=== PATIENT | female | born 1995 | race Caucasian/White ===

== ENCOUNTER 2023-04-17 14:29 | Emergency (ER) | payer SELFPAY ==
[2023-04-17 14:35] VITALS: BP 170/108; PULSE 93; RESP 22; TEMP 36.6; O2SAT 96; BMI 51.5
--- NOTE | 2023-04-17 15:04 | ED.URI1 ---
HPI - URI/Sore Throat General Chief Complaint: Upper Respiratory Infection Stated Complaint: ABD PAIN/CHEST CONGESTION Time Seen by Provider: 04/17/23 14:38 Source: patient Limitations: no limitations History of Present Illness HPI Narrative: [age] year old female presents for cough of three days' duration. She's been coughing up green phlegm and is worried about being contagious and having pneumonia. No fever that has been documented but her estimates that it might have been 100 degrees at home. no vomiting or diarrhea. She's not worried about having Covid, she states it feels different. Related Data Previous Rx's Medication Instructions Recorded benzonatate 100 mg capsule 100 mg PO TID PRN cough #20 caps 04/17/23 doxycycline hyclate 100 mg capsule 100 mg PO BID 10 days #20 caps 04/17/23 Allergies Allergy/AdvReac Type Severity Reaction Status Date / Time Penicillins Allergy Unknown Verified 04/17/23 14:35 Review of Systems ROS Narrative A ten point review of systems is negative except as noted above. Exam Narrative Exam Narrative: Nurses note and vital signs reviewed and patient is not hypoxic. General: The patient appears well and in no apparent distress. Patient is resting comfortably on cart. Skin: Warm, dry, no pallor noted. There is no rash noted. Head: Normocephalic, atraumatic Eye: Normal conjunctiva, no drainage Ears, Nose, Mouth, and Throat: oral mucosa is moist. Nares patent. Cardiovascular: Regular Rate and Rhythm Respiratory: Patient is in no distress, no accessory muscle use, lungs are clear to auscultation, no wheezing, rales or rhonchi Back: non-tender GI: nontender Musculoskeletal: The patient has no evidence of calf tenderness, no pitting edema, symmetrical pulses noted bilaterally Neurological: A&O, normal speech Psychiatric: Cooperative Constitutional Vital Signs, click to edit/add: Last Vital Signs Temp 98 F 04/17/23 14:35 Pulse 93 H 04/17/23 14:35 Resp 22 04/17/23 14:35 BP 170/108 H 04/17/23 14:35 Pulse Ox 96 04/17/23 14:35 O2 Del Method Room Air 04/17/23 14:58 Course Vital Signs Vital signs: Vital Signs Temperature 98 F 04/17/23 14:35 Pulse Rate 93 H 04/17/23 14:35 Respiratory Rate 22 04/17/23 14:35 Blood Pressure 170/108 H 04/17/23 14:35 Pulse Oximetry 96 04/17/23 14:35 Oxygen Delivery Method Room Air 04/17/23 14:35 Temperature 98 F 04/17/23 14:35 Pulse Rate 93 H 04/17/23 14:35 Respiratory Rate 22 04/17/23 14:35 Blood Pressure 170/108 H 04/17/23 14:35 Pulse Oximetry 96 04/17/23 14:35 Oxygen Delivery Method Room Air 04/17/23 14:58 MDM - URI/Sore Throat MDM Narrative Medical decision making narrative: she was offered a Covid test but doesn't want it. I have low clinical suspicion for pneumonia and she is prescribed doxycycline and Tessalon. Treatment diagnosis and follow-up were discussed with the patient. Differential Diagnosis Differential diagnosis: Likely upper respiratory infection, viral infection, bronchitis and other (Covid, pneumonia) Discharge Plan Discharge Chief Complaint: Upper Respiratory Infection Clinical Impression: Upper respiratory infection Patient Disposition: Home, Self-Care Time of Disposition Decision: 14:58 Condition: Good Mode of Transportation: Private Vehicle Prescriptions / Home Meds: New benzonatate 100 mg capsule 100 mg PO TID PRN (Reason: cough) Qty: 20 0RF doxycycline hyclate 100 mg capsule 100 mg PO BID 10 Days Qty: 20 0RF Instructions: Upper Respiratory Infection (ED) Stand Alone Forms: Portal Instructions Referrals: Physician,Non-Staff, MD [Primary Care Provider] - 1 week
[2023-04-17 15:14] LABS: SARS-CoV-2 Ag NEGATIVE (NEGATIVE)
[2023-04-17 15:23] VITALS: BP 142/90
[2023-04-18 15:53] LABS: SARS-CoV-2 NAA NOT DETECTED (NOT DETECTE)
== END 2023-04-17 15:24 | disposition home or self-care (01) ==
PROVIDERS: Emergency Provider Emergency Medicine
DX: J06.9 Acute upper respiratory infection, unspecified (principal); Z20.822 Contact with and (suspected) exposure to COVID-19
CPT/HCPCS: 87635; 87811; 99283; U0003

== ENCOUNTER 2024-12-01 09:10 | Outpatient (OUT) | payer BC, SELFPAY ==
[2024-12-01 10:25] LABS: Basophils Percent Auto 0.3 % (0.2-2.0); Eosinophils Absolute Auto 0.2 10^3/uL (0.0-0.7); Eosinophils Percent Auto 1.1 % (0.9-7.0); Hematocrit 34.7 % (36.0-48.0); Immature Granulocytes Abs Auto 0.05 10^3/uL (0.00-0.03); Immature Granulocytes Pct Auto 0.4 % (0.0-0.5); Lymphocytes Absolute Auto 3.1 10^3/uL (1.2-3.8); Lymphocytes Percent Auto 21.5 % (20.5-60.0); Mean Corpuscular Hemoglobin 20.2 pg (26.7-34.0); Mean Platelet Volume 9.6 fL (9.5-13.5); Monocytes Absolute Auto 0.7 10^3/uL (0.3-0.8); Neutrophils Absolute Auto 10.2 10^3/uL (1.4-6.5); Neutrophils Percent Auto 71.7 % (43.0-75.0); Platelet Count 412 10^3/uL (150-450); Red Blood Count 4.96 10^6/uL (4.20-5.40); Red Cell Distribution Width 16.1 % (11.0-15.0); White Blood Count 14.3 10^3/uL (4.0-11.0)
[2024-12-01 10:53] LABS: Estimated Average Glucose 134 mg/dL; Glycohemoglobin A1C 6.3 % (4.5-6.2)
[2024-12-01 11:29] LABS: Mean Corpuscular HGB Conc 28.8 g/dL (29.9-35.2)
[2024-12-01 12:07] LABS: Alanine Aminotransferase 36 U/L (14-59); Albumin Globulin Ratio 0.9; Albumin Level 3.7 g/dL (3.4-5.0); Alkaline Phosphatase 96 U/L (46-116); Anion Gap 13.3; Aspartate Amino Transferase 19 U/L (15-37); BUN Creatinine Ratio 16.2; Bilirubin Total 0.3 mg/dL (0.2-1.0); Carbon Dioxide 26.2 mmol/L (21.0-32.0); Chloride 104 mmol/L (98-107); Chol HDL Ratio 2.1; Cholesterol 112 mg/dL (<=200); Estimated GFR (African America >60 (>=60 mL/min/1.73m^2); Estimated GFR (Non-African Ame >60 (>=60 mL/min/1.73m^2); Free T3 2.47 pg/mL (2.18-3.98); Globulin 4.2 g/dL; Glucose 96 mg/dL (74-106); HDL Cholesterol 53 mg/dL (40-60); LDL Cholesterol Calculated 49.2 mg/dL; Potassium 3.5 mmol/L (3.5-5.1); Sodium 140 mmol/L (136-145); Thyroid Stimulating Hormone 2.936 uIU/mL (0.358-3.740); Total Protein 7.9 g/dL (6.4-8.2); Triglycerides 49 mg/dL (<=150); VLDL CHOLESTEROL 9.8 mg/dL
[2024-12-02 12:12] LABS: Insulin 23.8 uIU/mL (2.6-24.9)
== END 2024-12-01 09:11 | disposition home or self-care (01) ==
LOC: LAB 09:12
PROVIDERS: PCP Nurse Practitioner Family; Visit Provider Nurse Practitioner Family
DX: Z00.00 Encounter for general adult medical examination without abnormal findings (principal)
CPT/HCPCS: 36415; 80053; 80061; 82306; 83036; 83525; 83540; 84436; 84443; 84481; 85025

== ENCOUNTER 2024-12-23 17:59 | Emergency (ER) | payer BC, SELFPAY ==
--- OUTSIDE RECORDS SUMMARY | 2024-12-01 04:30 | XMS_ITS ---
Author Organization [facility] in [place] Address [address] [place] [address] Care Team Providers Care Recruiting Manager Name Role Phone Ayleen Colin Primary Care Provider Allergies Allergen (clinical drug ingredient) Drug/Non Drug Allergy documented on EMR Reaction Allergy Type Onset Date Status Penicillin rash Drug Allergy Active REASON FOR VISIT Presents to office with sister as a TARGET TRIMMER to establish care., Works at [employer] in [place]. Has a very demanding job., Was diagnosed with Depression at age 13. Medications Medication SIG (Take, Route, Fr equency, Duration) Notes Start Date End Date Status Lisinopril 10 MG 1 tablet Orally Once a day for 30 days 12/01/2024 Active Social History Tobacco Use: Social History Observation Description Date Details (start date - stop date) Never Smoker NA - NA Tobacco Control (Standard) Question Answer Notes Tobacco use: Nonsmoker AUDIT-C (Standard) Question Answer Notes Did you have a drink containing alcohol in the p ast year? No Points 0 Interpretation Negative Problems Problem Type SNOMED Code ICD Code Onset Dates Problem Status W/U Status Risk Notes Problem Hypertension (30488474) HTN (hypertension) (I10) Active confirmed Problem Morbid obesity (035275330) Class 3 obesity (E66.01) Active confirmed Problem Anxiety (95374006) Anxiety (F41.9) Active confirmed Problem Depressed (68210721) Depressed (F32.9) Active confirmed Vital Signs Blood pressure systolic 138 mm Hg 12/02/19 25 Blood pressure diastolic 100 mm Hg 025 Height 64 in 12/01/2024 Weight 341.6 lbs 12/01/2024 BMI 58.63 kg/m2 12/01/2024 Encounters Encounter Location Date Provider Diagnosis [facility] [address] [place] [address] 12/01/2024 Ayleen Colin HTN (hypertension) I10 ; Wellness examination Z00.00 and Class 3 obesity E66.01 Assessments Encounter Date Diagnosis (ICD Code) Assessment Notes Treatment Notes Treatment Clinical Notes Section Notes 12/01/2024 HTN (hypertension) (ICD-10 - I10) fu 2 weeks for BP check on lisinopril in past 12/01/2024 Wellness examination (ICD-10 - Z00.00) ROS done exam done discussed wt encouraged pap 12/01/2024 Class 3 obesity (ICD-10 - E66.01) going to gym Plan Of Treatment Medication Medication Name Sig Start Date Stop Date Notes Lisinopril 10 MG 1 tablet Orally Once a day for 30 days Treatment Notes Assessment Notes HTN (hypertension) fu 2 weeks for BP check on lisinopril in past Wellness examination ROS done exam done discussed wt encouraged pap Class 3 obesity going to gym Pending Test Test Name Order Date HEMOGLOBIN A1C (GLYCO) 12/01/2024 IRON, TOTAL 12/01/2024 LIPID PANEL (CHOL/TRIG/HDL/LDL) 12/02/19 25 VITAMIN D, 25 LEVEL (TOTAL) 12/01/2024 Insulin Level 12/01/2024 THYROID PANEL (T4/TSH/FREE T3) CMP (COMP MET [place]) w/eGFR CKD-EPI 2024 CBC WITH DIFF 12/01/2024 Next Appt Details Follow Up: 2 Weeks,prn, Reas on: Progress Notes * Perico HAREOB: [birth year] (29 yo F)Acc No.[id number]:12/01/2024 New Patient Patient: Debi OSORIO Provider: Asha Colin (TTC), BELLHOP CAPTAIN :1995 A ge:29 Y S ex:Female Date:12/01/2024 Address:[address] [place], [place] [id number] Check In:08:17 AM ESTCheck O ut:08:44 AM EST Subjective: * Chief Complaints: * 1 . Presents to office with sister as a TARGET TRIMMER to establish care.. 2. Works at [employer] in [place]. Has a very demanding job.. 3. Was diagnosed with Depression at age 13.. * HPI: G eneral: works at [employer] 48 to 80 hrs a week out of a marriage was coercive control situation ended 2019 hx depression, counseling and meds in past doesnt think its an issue mother was abusive mentally, addicted to opiates Mom at 44 from an infection around heart started going to gym. D epression Screening: PHQ-9 L ittle interest or pleasure in doing things?Several days F eeling down, depressed, or hopeless M ore than half the days T rouble falling or staying asleep, or sleeping too much N early every day F eeling tired or having little energy S everal days P oor appetite or overeating M ore than half the days F eeling bad about yourself or that you are a failure, or have let yourself or your family down N early every day T rouble concentrating on things, such as reading the newspaper or watching television S everal days M oving or speaking so slowly that other people could have noticed; or the opposite, being so fidgety or restless that you have been moving around a lot more than usual M ore than half the days T houghts that you would be better off or of hurting yourself in some way S everal days (Consider Suicide Assessment Risk) T otal Score 1 6 I nterpretation M oderately Severe Depression * ROS: G eneral/Constitutional: Fever d enies. H eadache d enies. W eight loss?denies. O phthalmologic: Discharge d enies. E ye Pain d enies. I tching and redness d enies. E NT: Nasal discharge d enies. N keyona congestion d enies.?Sore throat d enies. C ardiovascular: Chest tightness/ heavy pressure d enies. R apid heart rate d enies. S welling of extremities d enies. C hest pain d enies. ? R espiratory: Productive cough d enies. C hest pain d enies. C ough d enies. S hortness of breath d enies. W heezing d enies. ? G astrointestinal: Abdominal pain d enies. C onstipation d enies. D ecreased appetite d enies. D iarrhea d enies. N ausea d enies. V omiting?denies. G enitourinary: Urinary incontinence d enies. P ainful urination d enies. M usculoskeletal: Back pain d enies. N chelle pain d enies. M uscle aches d enies. S kin: Rash d enies. S kin lesion(s) d enies. ? * Active Problem List F41.9 Anxiety Modified On:12/01/2024 Status:confirmed F32.9 Depressed Modified On:12/01/2024 Status:confirmed I10 HTN (hypertension) Modified On:12/01/2024 Status:confirmed E66.01 Class 3 obesity Modified On:12/01/2024 Status:confirmed * Medical History: K idney stones, Anxiety, Depressed. * Surgical History: t onsillectomy . * Family History: F ather: alive, depression, kidney stones, diagnosed with Diabetes mellitus without mention of complication, type II or unspecified type, not stated as uncontrolled. M other: , from infection in heart, had substance abuse issues. 1 sister(s) . . * Social History: T obacco Use: T obacco Control (Standard) T obacco use: N onsmoker D rug/Alcohol: A REYNALDO-C (Standard) D id you have a drink containing alcohol in the past year? N o P oints 0 I nterpretation N egative * Medications: N one * Allergies: P enicillin: rash. Objective: * Vitals: W t:341.6lbs, Ht: 64 in, BP:138/100mm Hg, BMI:58.63Index, Ht-cm: 162.56 cm, Wt-k.95 kg. * Examination: G eneral Examinations: GENERAL APPEARANCE: a lert and oriented, in no acute distress, obese. EYES: c onjunctiva normal, sclera non-icteric. LUNGS: c lear to auscultation bilaterally. CARDIO: r egular rate and rhythm, S1, S2 normal. MUSCULOSKELETAL: G ait and station normal. SKIN: w arm and dry. Assessment: * Assessment: 1. H TN (hypertension) - I10 (Primary) 2 . W ellness examination - Z00.00? 3. C lass 3 obesity - E66.01 Plan: * Treatment: 2. W ellness examination L AB: HEMOGLOBIN A1C (GLYCO) L AB: IRON, TOTAL L AB: LIPID PANEL (CHOL/TRIG/HDL/LDL) L AB: VITAMIN D, 25 LEVEL (TOTAL) L AB: Insulin Level L AB: THYROID PANEL (T4/TSH/FREE T3) L AB: CMP (COMP MET [place]) w/eGFR CKD-EPI L AB: CBC WITH DIFF Notes: ROS done exam done discussed wt encouraged pap 3. C lass 3 obesity Notes: going to gym * Follow Up: 2 Weeks,prn * * Sign off status: Completed Visit Status: C KIRSTEN (Check Out) true * Provider: Asha Colin (TTC), BELLHOP CAPTAIN Date: 0 12/01/2024 Generated for Brie elaine/Bassam/eTransmitting on: 0 12/23/2024 06:03 PM EDT History and Physical Notes * HPI (History of Present Illness) Category Sub-Category Detail Notes Category Not es Depression Screening PHQ-9 Little inte rest or pleasure in doing things: Several days Feeling down, depressed, or hopeless: Mo re than half the days Trouble falling or staying asleep, or sl eeping too much: Nearly every day Feeling tired or having little energy: S everal days Poor appetite or overeating: More than h [facility] the days Feeling bad about yourself o r that you are a failure, or have let yourself or your family down: Nearly every day Trouble concentrating on thi ngs, such as reading the newspaper or watching television: Several days Moving or speaking so slowly that other people could have noticed; or the opposite, being so fidgety or restless that you have been moving around a lot more than usual: More than half the days Thoughts that you would be b linda off or of hurting yourself in some way: Several days (Consider Suicide Assessment Risk) Total Score: 16 Interpretation: Moderately Severe Depres valeria General works at [employer] 48 to 80 hrs a week out of a marriage was coercive control situation ended 2019 hx depression, counseling and meds in past doesnt think its an issue mother was abusive mentally, addicted to opiates Mom at 44 from an infection around heart started going to gym Examination Category Sub-Category Detail Notes Category Not es General Examinations GENERAL APPEARANCE: alert a nd oriented, in no acute distress, obese EYES: conjunctiva normal, sclera non-icteric EARS: NOSE: THROAT: CARDIO: regular rate and rhy thm, S1, S2 normal LUNGS: clear to auscultatio n bilaterally ABDOMEN: SKIN: warm and dry BACK: MUSCULOSKELETAL: Gait and station nor mal LYMPH NODES:
--- OUTSIDE RECORDS SUMMARY | 2024-12-06 04:30 | XMS_ITS ---
Author Organization The [facility] in [place] Address [address] [place] [address] Care Team Providers Care Tape Recording Machine Operator Name Role Phone Ayleen Colin Primary Care Provider Allergies Allergen (clinical drug ingredient) Drug/Non Drug Allergy documented on EMR Reaction Allergy Type Onset Date Status Penicillin rash Drug Allergy Active REASON FOR VISIT go over bloodwork Medications Medication SIG (Take, Route, Frequency, Duration) Notes Start Date End Date Status Vitamin D3 50 MCG (2000 UT) 1 capsule Orally Once a day for 30 day(s) 12/06/2024 Active Lisinopril 10 MG 1 tablet Orally Once a day for 30 days 12/01/2024 Active metFORMIN HCl 500 MG 1 tablet with a raulito l Orally BID for 30 days 12/06/2024 Active Ferrous Sulfate 325 (65 Fe) MG 1 tablet Orally Three times a Week for 30 day(s) 12/06/2024 Activ e Social History Tobacco Use: Social History Observation Description Date Details (start date - stop date) Never Smoker NA - NA Tobacco Control (Standard) Question Answer Notes Tobacco use: Nonsmoker Problems Problem Type SNOMED Code ICD Code Onset Dates Problem Status W/U Status Risk Notes Problem Vitamin D deficiency (42195651) Vitamin D deficiency (E55.9) Active confirmed Problem Leukocytosis (684420247) Elevated WBC count (D72.829) Active confirmed Problem Iron deficiency anemia (92612444) Iron deficiency anemia (D50.9) Active confirmed Vital Signs Blood pressure systolic 126 mm Hg 12/07/19 25 Blood pressure diastolic 92 mm Hg 025 Height 64 in 12/06/2024 Weight 339.4 lbs 12/06/2024 BMI 58.25 kg/m2 12/06/2024 Encounters Encounter Location Date Provider Diagnosis [address] [place] [address] 12/06/2024 Ayleen Colin Vitamin D deficiency E55.9 ; Pre-diabetes R73.03 ; Elevated WBC count D72.829 and Iron deficiency anemia D50.9 Assessments Encounter Date Diagnosis (ICD Code) Assessment Notes Treatment Notes Treatment Clinical Notes Section Notes 12/06/2024 Vitamin D deficiency (ICD-10 - E55.9) 12/06/2024 Pre-diabetes (ICD-10 - R73.03) work on diet, wt fu 3m 12/06/2024 Elevated WBC count (ICD-10 - D72.829) was little under weather recently 12/06/2024 Iron deficiency anemia (ICD-10 - D50.9) irregular periods, some last 3 weeks when has fu obgyn repeat labs 3m Plan Of Treatment Medication Medication Name Sig Start Date Stop Date Notes Vitamin D3 50 MCG (1999 UT) 1 capsule Or ally Once a day for 30 day(s) 12/06/2024 metFORMIN HCl 500 MG 1 tablet with a raulito l Orally BID for 30 days 12/06/2024 Ferrous Sulfate 325 (65 Fe) MG 1 tablet Orally Three times a Week for 30 day(s) 12/06/2024 Treatment Notes Assessment Notes Pre-diabetes work on diet, wt fu 3m Elevated WBC count was little under wea ther recently Iron deficiency anemia irregular periods, some last 3 weeks when has fu obgyn repeat labs 3m Pending Test Test Name Order Date CBC AUTO DIFF 12/06/2024 Next Appt Details Follow Up: prn, Reason: Progress Notes * Perico HAREOB: [birth year] (29 yo F)Acc No.[id number]:12/06/2024 Progress Note Patient: Janice PETTYDebi Provider: Asha Colin ([facility]), SOFT TILE SETTER :1995 A ge:29 Y S ex:Female Date:12/06/2024 Address:[address] [place], [place] [id number] Check In:08:24 AM ESTCheck O ut:08:52 AM EST Subjective: * Chief Complaints: * 1 . Go over bloodwork. * HPI: G eneral: reviewed labs hx PCOS iron def anemia pre diabetes WBC elevated Vit D low. * ROS: G eneral/Constitutional: Fever d enies. [...] E66.01 Class 3 obesity Modified On:12/01/2024 Status:confirmed E55.9 Vitamin D deficiency Modified On:12/06/2024 Status:confirmed D72.829 Elevated WBC count Modified On:12/06/2024 Status:confirmed D50.9 Iron deficiency anem ia Modified On:05/19/2025W/U Status:confirmed * Medical History: K idney stones, Anxiety, Depressed. * Surgical History: t onsillectomy . * Hospitalization/Major Diagno stic Procedure: D enies Past Hospitalization. * Family History: F ather: alive, depression, kidney stones, diagnosed with Diabetes mellitus without mention of complication, type II or unspecified type, not stated as uncontrolled. M other: , from infection in heart, had substance abuse issues. 1 sister(s) . . * Social History: T obacco Use: T obacco Control (Standard) T obacco use: N onsmoker * Medications: T aking Lisinopril 10 MG Tablet 1 tablet Orally Once a day , Medication List reviewed and reconciled with the patient * Allergies: P enicillin: rash - Allergy. Objective: * Vitals: W t:339.4lbs, Ht: 64 in, BP:126/92mm Hg, BMI:58.25Index, Ht-cm: 162.56 cm, Wt-k.95 kg. * Examination: G eneral Examinations: GENERAL APPEARANCE: a lert and oriented, in no acute distress, obese. EYES: c onjunctiva normal, sclera non-icteric. NOSE: n ormal external appearance. LUNGS: c lear to auscultation bilaterally. CARDIO: r egular rate and rhythm, S1, S2 normal. ABDOMEN: s oft, nontender. MUSCULOSKELETAL: G ait and station normal. SKIN: w arm and dry. Assessment: * Assessment: 1. P re-diabetes - R73.03 (Primary) 2 . V itamin D deficiency - E55.9 ? 3 . E levated WBC count - D72.829 4 . I ben deficiency anemia - D50.9 Plan: * Treatment: 2. V itamin D deficiency Start Vitamin D3 Capsule, 50 MCG (2000 UT), 1 capsule, Orally, Once a day, 30 day(s), 30, Refills 11. 3. E levated WBC count L AB: CBC AUTO DIFF Notes: was little under weather recently 4. I ben deficiency anemia Start Ferrous Sulfate Tablet Delayed Release, 325 (65 Fe) MG, 1 tablet, Orally, Three times a Week, 30 day(s), 12, Refills 11. Notes: irregular periods, some last 3 weeks when has fu obgyn repeat labs 3m * Preventive Medicine: Screenings/Counseling: B [facility] [employer]AN Above Normal BMI Follow-up D ietary management education, guidance, and counseling * Follow Up: p rn * * Electronically signed by Monika Colin , TWYLA, ELECTRONIC LAB TECHNICIAN.SOFT TILE SETTER.[id number] on 12/06/2024 at 04:19 PM EDT Sign off status: Completed Visit Status: C HK (Check Out) true * Provider: Asha Colin (KATHIE), SOFT TILE SETTER Date: 0 12/06/2024 Generated for Brie ng/Bassam/eTransmitting on: 0 12/23/2024 06:03 PM EDT History and Physical Notes * HPI (History of Present Illness) Category Sub-Category Detail Notes Category Not es General reviewed labs hx PCOS iron def anemia pre diabetes WBC elevated Vit D low Examination Category Sub-Category Detail Notes Category Not es General Examinations GENERAL APPEARANCE: alert a nd oriented, in no acute distress, obese EYES: conjunctiva normal, sclera non-icteric EARS: NOSE: normal external appe arance THROAT: CARDIO: regular rate and rhy thm, S1, S2 normal LUNGS: clear to auscultatio n bilaterally ABDOMEN: soft, nontender SKIN: warm and dry BACK: MUSCULOSKELETAL: Gait and station nor mal LYMPH NODES:
[2024-12-23 18:03] VITALS: BP 132/80; PULSE 87; TEMP 36.7; O2SAT 99; BMI 56.6
--- OUTSIDE RECORDS SUMMARY | 2024-12-23 18:03 | XMS_ITS | Clinical Summary ---
Demographics Address [address] [place] [address] Mobile Phone Home Phone Email Address Preferred Language Ecuadorean Marital Status Single Restorationism Affiliation Unknown Race White Ethnic Group Not or Lati no Author Organization [employer] Address [id number] [address] [place] [address] Care Team Providers Care Track Moving Machine Operator Name Role Phone No Pcp, No Pcp Primary Care Provider Unavailabl e Allergies Active Allergy Reactions Criticality Noted Date Comments Cefaclor 07/04/2021 Medications lisinopriL (PRINIVIL,ZESTRIL) 10 mg tablet Take 1 tablet (10 mg total) by mouth in the morning. Active ibuprofen (MOTRIN) 800 mg tablet Take 1 tablet (800 mg total) by mouth 3 (three) times a day. 21 tablet 4 Active ondansetron ODT (ZOFRAN ODT) 4 mg disintegrating tablet Dissolve 1 tablet (4 mg total) on tongue every 8 (eight) hours as needed for nausea for up to 10 doses. 10 tablet 4 Active ibuprofen (MOTRIN) 600 mg tablet Take 1 tablet (600 mg total) by mouth every 6 (six) hours as needed for pain. 30 tablet 4 Active acetaminophen (TYLENOL EXTRA STRENGTH) 500 mg tablet Take 2 tablets (1,000 mg total) by mouth every 6 (six) hours as needed for pain. 30 tablet 4 Active Social History Tobacco Use Types Packs/Day Years Used Date Smoking Tobacco: Never Smokeless Tobacco: Never Alcohol Use Standard Drinks/Week Comments Not Currently 0 (1 standard drink = 0.6 oz pur e alcohol) Hunger Screening Answer Date Recorded Within the past 12 months we worried whether our food would run out before we got money to buy more. Never True 09/15/2023 Within the past 12 months th e food we bought just didn't last and we didn't have money to get more. Never True 09/15/2023 Comments No Sex and Gender Information Value Date Recorded Sex Assigned at Not on file Legal Sex Female 10:16 PM EST Gender Identity Not on file Sexual Orientation Not on file Last Filed Vital Signs Vital Sign Reading Time Taken Comments Blood Pressure 129/88 09/15/2023 5:16 PM EST Pulse 94 09/15/2023 7:51 PM EST Temperature 38.7 C (101.7 F) 09/15/2023 5:16 PM EST Respiratory Rate 18 09/15/2023 7:51 PM EST Oxygen Saturation 94% 09/15/2023 7:51 PM EST Inhaled Oxygen Concentration - - Weight 158.8 kg (350 lb) 09/15/2023 5:16 PM EST Height 162.6 cm (5' 4 ) 09/15/2023 5:16 PM EST Body Mass Index 60.08 09/15/2023 5:16 PM EST Plan of Treatment Health Maintenance Due Date Last Done Comments Depression Screening 2007 DTaP,Tdap and Td Vaccines (1 - Tdap) 2014 Pap Smear 2016 Adult BMI Screening 09/15/2024 09/15/2023 Tobacco Screening 09/15/2024 09/15/2023 Influenza Vaccine 03/21/2025 Medical Devices Not on file Care Teams Track Moving Machine Operator Relationship Specialty Start Date End Date No Pcp, No Pcp [facility]RI[facility]IANO [place] [id number] PCP - General Family Medicine 09/03/23
--- OUTSIDE RECORDS SUMMARY | 2024-12-23 18:04 | XMS_ITS | Patient Health Record ---
Author Organization [facility] in [place] Address [address] [place] [address] Care Team Providers Care Nut Sifter Name Role Phone Ayleen Colin Primary Care Provider Allergies Allergen (clinical drug ingredient) Drug/Non Drug Allergy documented on EMR Reaction Allergy Type Onset Date Status Penicillin rash Drug Allergy Active Results Component Value Reference Range Notes CBC AUTO DIFF Reviewed date:12/02/2024 10:28:13 AM Interpretation: Performing Lab: Notes/Report: [facility] , White Blood Count 14.3 4.0-11.0 10 3/uL Red Blood Count 4.96 4.20-5.40 10 6/uL Hemoglobin 10.0 12.0-16.0 g/dL Hematocrit 34.7 36.0-48.0 % Mean Corpuscular Volume 70.0 81.0-99.0 fL 1+ M icrocytosis Present Mean Corpuscular Hemoglobin 20.2 26.7-34.0 pg Mean Corpuscular HGB Conc 28.8 29.9-35.2 g/dL 1+ Hypochromia Present Red Cell Distribution Width 16.1 11.0-15.0 % Platelet Count 412 150-450 10 3/uL Mean Platelet Volume 9.6 9.5-13.5 fL Neutrophils Percent Auto 71.7 43.0-75.0 % Lymphocytes Percent Auto 21.5 20.5-60.0 % Monocytes Percent Auto 5.0 1.7-12.0 % Eosinophils Percent Auto 1.1 0.9-7.0 % Basophils Percent Auto 0.3 0.2-2.0 % Immature Granulocytes Pct Auto 0.4 0.0-0.5 % Neutrophils Absolute Auto 10.2 1.4-6.5 10 3/uL Lymphocytes Absolute Auto 3.1 1.2-3.8 10 3/uL Monocytes Absolute Auto 0.7 0.3-0.8 10 3/uL Eosinophils Absolute Auto 0.2 0.0-0.7 10 3/uL Basophils Absolute Auto 0.0 0.0-0.1 10 3/uL Immature Granulocytes Abs Auto 0.05 0.00-0.03 10 3/uL Performing Lab: see note ML - [facility] FREE T3 Reviewed date:12/02/2024 10:28:13 AM Interpretation: Performing Lab: Notes/Report: [facility] , Free T3 2.47 2.18-3.98 pg/mL Performing Lab: see note - [facility] GLYCOHEMOGLOBIN A1C Reviewed date:12/02/2024 10:28:13 AM Interpretation: Performing Lab: Notes/Report: [facility] , Glycohemoglobin A1C 6.3 4.5-6.2 % ADA RECOMMENDED LIMIT 4.0 - 6.0 > 7.0 ADA THERAPEUTIC TARGET < 7.0 ACTION SUGGESTED Estimated Average Glucose 134 Performing Lab: see note - [facility] INSULIN Reviewed date:12/02/2024 01:19:04 PM Interpretation: Performing Lab: Notes/Report: [facility] , Insulin 23.8 2.6-24.9 uIU/mL Feed Handler: Chalo Espinosa PhD, Phone: [phone] Performed at: - [facility] [address] [id number] Performing Lab: see note - [facility] LB IRON Reviewed date:12/02/2024 10:28:13 AM Interpretation: Performing Lab: Notes/Report: [facility] , Iron 14.0 50.0-170.0 ug/dL Performing Lab: see note ML - [facility] LIPID PROFILE Reviewed date:12/02/2024 10:28:13 AM Interpretation: Performing Lab: Notes/Report: [facility] , Triglycerides 49 <=150 mg/dL Cholesterol 112 <=200 mg/dL HDL Cholesterol 53 40-60 mg/dL > or =60 mg/dl - LOW CARDIOVASCULAR RISK <40 mg/dl - HIGH CARDIOVASCULAR RISK LDL Cholesterol Calculated 49.2 >190 mg/dl VERY HIGH 160-189 mg/dl HIGH <100 mg/dl OPTIMAL 100-129 mg/dl NEAR OR ABOVE OPTIMAL 130-159 mg/dl BORDERLINE HIGH VLDL CHOLESTEROL 9.8 Chol HDL Ratio 2.1 4.4 - 7.1 AVERAGE RISK >11.0 HIGH RISK 7.1 - 11.0 MODERATE RISK 3.3 - 4.4 LOW RISK Performing Lab: see note - [facility] LB PROF 14(COMP METB) Reviewed date:12/02/2024 10:28:13 AM Interpretation: Performing Lab: Notes/Report: [facility] , Sodium 140 136-145 mmol/L Potassium 3.5 3.5-5.1 mmol/L Chloride 104 98-107 mmol/L Carbon Dioxide 26.2 21.0-32.0 mmol/L Anion Gap 13.3 Glucose 96 74-106 mg/dL Blood Urea Nitrogen 12.0 7.0-18.0 mg/dL Creatinine 0.74 0.55-1.02 mg/dL Estimated GFR ( Kanika >60 >=60 mL/min/1.73m 2 Estimated GFR (Non- Sandra >60 >=60 mL/min/1.73m 2 BUN Creatinine Ratio 16.2 Calcium 9.0 8.5-10.1 mg/dL Bilirubin Total 0.3 0.2-1.0 mg/dL Aspartate Amino Transferase 19 15-37 U/L Alanine Aminotransferase 36 14-59 U/L Alkaline Phosphatase 96 46-116 U/L Total Protein 7.9 6.4-8.2 g/dL Albumin Level 3.7 3.4-5.0 g/dL Globulin 4.2 Albumin Globulin Ratio 0.9 Performing Lab: see note ML - [facility] LB T4 Reviewed date:12/02/2024 10:28:13 AM Interpretation: Performing Lab: Notes/Report: [facility] , T4 Thyroxine 8.10 4.80-13.90 ug/dL Performing Lab: see note - [facility] LB TSH Reviewed date:12/02/2024 10:28:13 AM Interpretation: Performing Lab: Notes/Report: [facility] , Thyroid Stimulating Hormone 2.936 0.358-3.740 u IU/mL Performing Lab: see note ML - [facility] LB VITAMIN D 25 [place] Reviewed date:12/02/2024 10:28:14 AM Interpretation: Performing Lab: Notes/Report: [facility] , Vitamin D 16.6 >100 ng/mL Potential Toxicity <20 ng/mL Vit D deficient 30-100 ng/mL Vit D sufficient 20-<30 ng/mL Vit D insufficient Performing Lab: see note ML - [facility] LB Reason For Referral No Information Medications Medication SIG (Take, Route, Frequency, Duration) Notes Start Date End Date Status Vitamin D3 50 MCG (1999) 1 capsule Orally Once a day for [...] Status W/U Status Risk Notes Problem Hypertension (74994664) HTN (hypertension) (I10) Active confirmed Problem Anxiety (64688612) Anxiety (F41.9) Active confirmed Problem Depressed (70149088) Depressed (F32.9) Active confirmed Problem Vitamin D deficiency (46276698) Vitamin D deficiency (E55.9) Active confirmed Problem Leukocytosis (142758509) Elevated WBC count (D72.829) Active confirmed Problem Iron deficiency anemia (10456745) Iron deficiency anemia (D50.9) Active confirmed Problem Morbid obesity (827768115) Class 3 obesity (E66.01) Active confirmed Vital Signs Blood pressure diastolic 92 mm Hg 12/06/2024 Height 64 in 12/06/2024 Blood pressure systolic 126 mm Hg 12/06/2024 Weight 339.4 lbs 12/06/2024 BMI 58.25 kg/m2 12/06/2024 Encounters Encounter Location Date Provider Diagnosis [facility] [address] [place] [address] 12/01/2024 Ayleen Colin HTN (hypertension) I10 ; Wellness examination Z00.00 and Class 3 obesity E66.01 [facility] [address] [place] [address] 12/06/2024 Ayleen Colin Vitamin D deficiency E55.9 ; Pre-diabetes R73.03 ; Elevated WBC count D72.829 and Iron deficiency anemia D50.9 [facility] [address] [place] [address] 12/02/2024 Ayleen Colin Assessments Encounter Date Diagnosis (ICD Code) Assessment Notes Treatment Notes Treatment Clinical Notes Section Notes 12/06/2024 Vitamin D deficiency (ICD-10 - E55.9) 12/06/2024 Pre-diabetes (ICD-10 - R73.03) work on diet, wt fu 3m 12/01/2024 HTN (hypertension) (ICD-10 - I10) fu 2 weeks for BP check on lisinopril in past 12/01/2024 Wellness examination (ICD-10 - Z00.00) ROS done exam done discussed wt encouraged pap 12/01/2024 Class 3 obesity (ICD-10 - E66.01) going to gym 12/06/2024 Elevated WBC count (ICD-10 - D72.829) was little under weather recently 12/06/2024 Iron deficiency anemia (ICD-10 - D50.9) irregular periods, some last 3 weeks when has fu obgyn repeat labs 3m Plan Of Treatment Pending Test Test Name Order Date HEMOGLOBIN A1C (GLYCO) 12/01/2024 IRON, TOTAL 12/01/2024 LIPID PANEL (CHOL/TRIG/HDL/LDL) 12/02/19 25 VITAMIN D, 25 LEVEL (TOTAL) 12/01/2024 Insulin Level 12/01/2024 CBC AUTO DIFF 12/06/2024 THYROID PANEL (T4/TSH/FREE T3) CMP (COMP MET [place]) w/eGFR CKD-EPI 2024 CBC WITH DIFF 12/01/2024 Insurance Providers Payer Name Payer Address Payer Phone Subscriber Number Group Number Insured Name Patient Relationship to Insured Coverage Start Date Coverage End Date [employer] [address] [place] [address] [id number] Debi Colvin Self - patient is the insured Medical (General) History Medical History History ICD Code kidney stones Anxiety F41.9 Depressed F32.9 Surgical History Surgery Date(Month/Year) tonsillectomy
--- OUTSIDE RECORDS SUMMARY | 2024-12-23 18:04 | XMS_ITS | Patient Health Record ---
Demographics Address [address] [facility] [place] [address] Mobile Email Address Preferred Language en Marital Status Unknown Sikh Affiliation Unknown Race White Ethnic Group Not or Lati no Author Organization [facility] Address [address] [place], [place] [id number] Support Name Relationship Address Phone [employer] [facility] Contact [address] [place], [place] [phone] Debi Colvin Guarantor Unknown Care Team Providers Care Sign Erector And Repairer Name Role Phone VelFelisa Primary Care Provider Allergies Allergen (clinical drug ingredient) Drug/Non Drug Allergy documented on EMR Reaction Allergy Type Onset Date Status Penicillin hives Drug Allergy Active Reason For Referral No Information Medications Medication SIG (Take, Route, Fr equency, Duration) Notes Start Date End Date Status Ibuprofen 200 MG 1 tablet with food o r milk as needed Orally Three times a day Active Lisinopril 10 MG 1 tablet Orally Once a day for 30 days Active Social History Tobacco Use: Social History Observation Description Date Details (start date - stop date) Never Smoker NA - NA Sex Assigned At : Social History Observation Description Sex Assigned At Unknown Household Question Answer Notes Marital status: single Number of adults in household: 2 Number of children in household: 0 Tobacco Use/Smoking Question Answer Notes Tobacco use: nonsmoker Problems Problem Type SNOMED Code ICD Code Onset Dates Problem Status W/U Status Risk Notes Problem 686001600 BMI 60.0-69.9, adult (Z68.44) Active confirmed Problem 43536051 Primary hypertension (I10) Active confirmed Plan Of Treatment No Information Insurance Providers Payer Name Payer Address Payer Phone Subscriber Number Group Number Insured Name Patient Relationship to Insured Coverage Start Date Coverage End Date [facility] [address] [place] [id number] Debi Colvin Self - patient is the insured 1 3 Medical (General) History Surgical History Surgery Date(Month/Year) tubes in bilateral ears kidney stone removal
--- NOTE | 2024-12-23 18:09 | ECG_ITS ---
The [facility] Test Date: 2024-12-23 Pat Name: DAMIAN HARE Department: Room: - Gender: Female Insurance Policy Clerk: : 1995 Requested By: [id number] Order Number: [id number] Reading MD: STEF LOPEZ M.D. Measurements Intervals [place] Rate: 81 P: 54 SD: 148 QRS: 51 QRSD: 96 T: 28 QT: 400 QTc: 437 Interpretive Statements 1100 Sinus rhythm 4068 Nonspecific Twave abnormality 9130 borderline ECG No previous ECG available for comparison Electronically Signed On 12-23-2024 20:20:35 EDT by STEF LOPEZ M.D.
--- NOTE | 2024-12-23 18:14 | XR_ITS ---
The [address] [address] Patient Name: DAMIAN HARE MRN: [id number] date: 1995 Sex: F Assigned Patient Location: ER Current Patient Location: ED.MAIN Accession/Order Number: [id number] Exam Date: 12/23/2024 18:44 Report Date: 12/23/2024 18:45 At the request of: JOHNY WHITNEY NP Procedure: XR chest 2V Plain film chest 2 view HISTORY: Chest pain for 3 days COMPARISON: None FINDINGS: SUPPORT DEVICES: None POSTSURGICAL CHANGES: None HEART: Within normal limits PULMONARY NOEMI: Within normal limits MEDIASTINUM: Unremarkable LUNGS AND PLEURA: No acute lung process, pleural effusion or pneumothorax identified. BONY STRUCTURES: Intact ADDITIONAL FINDINGS None XR/XR chest 2V IMPRESSION: No acute process. Impression dictated by: Huy Colindres M.D. 12/23/2024 6:45 PM Dictation Location: [place] [address] Electronically authenticated by: [id number] Y Date: 12/23/2024 18:45
--- NOTE | 2024-12-23 18:15 | ED.GENADUL1 ---
HPI HPI - General Adult General Chief complaint: Chest Pain Stated complaint: CHEST PAINS Time Seen by Provider: 12/23/24 18:01 Source: patient Mode of arrival: walk-in History of Present Illness HPI narrative: The 29-year-old female who presents to the emergency department today for evaluation of concerns for chest pain. She endorses over the past week she has had a discomfort just above her right breast. She reports the pain to be intermittent but when it does come on reports it to be mostly constant and worse with movement of her arm and neck. She does endorse some heavy lifting and repetitive movement at her job. She has any associated symptoms of shortness of breath, palpitations, cough/cold symptoms, abdominal pain, nausea/vomiting. Syncopal episodes. She denies any significant cardiovascular events including VT or CVA. She does endorse being prediabetic and taking metformin otherwise denies any history of hypertension or hyperlipidemia. Related Data Home Medications ?Medication ?Instructions ?Recorded ?Confirmed lisinopril 10 mg tablet 10 mg PO DAILY 12/23/24 12/23/24 metformin 500 mg tablet 500 mg PO BID 12/23/24 12/23/24 Allergies Allergy/AdvReac Type Severity Reaction Status Date / Time Penicillins Allergy Unknown hives Verified 12/23/24 18:03 cefaclor (From [facility]) Allergy Hives Verified 12/23/24 18:03 Review of Systems ROS Status of ROS 10 or more systems reviewed and unremarkable except as noted in history and below PFSH PFSH Social History Little interest or pleasure in doing things: not at all Feeling down, depressed, or hopeless: not at all Exam Narrative Exam Narrative: Constituational: Awake/ alert, no apparent distress, well hydrated, + obese HENMT: normocephalic, external ears normal, moist oral mucous membranes and oropharynx normal Eyes: EOMI and conjunctivae normal Neck: ROM intact Chest: + Mild discomfort and reproduction of chest discomfort with palpation of R breast. Normal inspection of chest Respiratory: Normal respiratory effort, clear to auscultation bilaterally Cardio: regular rate and regular rhythm GI: soft to palpation and non-tender Back: nontender MSK: ROM intact, +NVI Skin: no rashes or petechiae Neuro: no focal deficits Psych: mental status grossly normal Constitutional Vital Signs, click to edit/add: Last Vital Signs Temp 98.1 F 12/23/24 18:03 Pulse 87 12/23/24 18:03 Resp 20 12/23/24 18:03 BP 132/80 12/23/24 18:03 Pulse Ox 99 12/23/24 18:03 O2 Del Method Room Air 12/23/24 18:03 Course Vital Signs Vital signs: Vital Signs Temperature 98.1 F 12/23/24 18:03 Pulse Rate 87 12/23/24 18:03 Respiratory Rate 20 12/23/24 18:03 Blood Pressure 132/80 12/23/24 18:03 Pulse Oximetry 99 12/23/24 18:03 Oxygen Delivery Method Room Air 12/23/24 18:03 Temperature 98.1 F 12/23/24 18:03 Pulse Rate 87 12/23/24 18:03 Respiratory Rate 20 12/23/24 18:03 Blood Pressure 132/80 12/23/24 18:03 Pulse Oximetry 99 12/23/24 18:03 Oxygen Delivery Method Room Air 12/23/24 18:03 Medical Decision Making MDM Narrative Medical decision making narrative: The patient is a well-appearing 29-year-old female who presented to the emergency department today for evaluation concerns for atypical chest pain. Initial examination vital signs overall stable. She does not appear to be exhibiting any ischemic symptoms and additionally appears euvolemic on exam. Patient did have some mild reproduction of chest discomfort just above the left breast over a focal. EKG without acute changes and troponin negative x 1. Low clinical suspicion for PE with Wells score of 0 and patient is otherwise hemodynamically stable and without additional symptoms including shortness of breath or dizziness/syncope. Labs reviewed for mild leukocytosis, no anemia or thrombocytopenia. Renal and hepatic function stable. Patient did receive supportive measures of ibuprofen and on reevaluation she reported some improvement in condition. Clinical impression atypical chest pain, likely chest wall pain. Discussed these findings with the patient including recommendations for supportive care. Send follow-up with patient's primary care provider for reevaluation. Discussed signs and symptoms of any worsening condition and when to consider reevaluation by the emergency department. Patient verbalized an understanding of this and is agreeable with the plan to be discharged home. Medical Records Medical records reviewed: Yes I reviewed the patient's medical records Lab Data Lab results reviewed: Yes I reviewed the patient's lab results Labs: Lab Results 12/23/24 Range/Units 18:26 WBC 11.8 H (4.0-11.0) 10^3/uL RBC 5.06 (4.20-5.40) 10^6/uL Hgb 10.5 L (12.0-16.0) g/dL Hct 35.0 L (36.0-48.0) % MCV 69.2 L (81.0-99.0) fL MCH 20.8 L (26.7-34.0) pg MCHC 30.0 (29.9-35.2) g/dL RDW 16.2 H (11.0-15.0) % Plt Count 479 H (150-450) 10^3/uL MPV 9.3 L (9.5-13.5) fL Neut % (Auto) 64.9 (43.0-75.0) % Lymph % (Auto) 25.3 (20.5-60.0) % [place] % (Auto) 7.4 (1.7-12.0) % Eos % (Auto) 1.9 (0.9-7.0) % Baso % (Auto) 0.3 (0.2-2.0) % Neut # (Auto) 7.7 H (1.4-6.5) 10^3/uL Lymph # (Auto) 3.0 (1.2-3.8) 10^3/uL [place] # (Auto) 0.9 H (0.3-0.8) 10^3/uL Eos # (Auto) 0.2 (0.0-0.7) 10^3/uL Baso # (Auto) 0.0 (0.0-0.1) 10^3/uL Abs Immat Gran (auto) 0.02 (0.00-0.03) 10^3/uL Imm/Tot Granulo (auto) 0.2 (0.0-0.5) % Sodium 139 (136-145) mmol/L Potassium 3.8 (3.5-5.1) mmol/L Chloride 103 (98-107) mmol/L Carbon Dioxide 27.3 (21.0-32.0) mmol/L Anion Gap 12.5 BUN 15.0 (7.0-18.0) mg/dL Creatinine 0.67 (0.55-1.02) mg/dL Est GFR ( Amer) >60 (>=60 mL/min/1.73m^2) Est GFR (Non-Af Amer) >60 (>=60 mL/min/1.73m^2) BUN/Creatinine Ratio 22.4 Glucose 97 (74-106) mg/dL Calcium 9.1 (8.5-10.1) mg/dL Total Bilirubin 0.2 (0.2-1.0) mg/dL AST 16 (15-37) U/L ALT 32 (14-59) U/L Alkaline Phosphatase 98 (46-116) U/L Troponin I High Sens <4.0 L (4.0-51.3) pg/mL Total Protein 8.0 (6.4-8.2) g/dL Albumin 3.6 (3.4-5.0) g/dL Globulin 4.4 g/dL Albumin/Globulin Ratio 0.8 Imaging Data Chest x-ray: Attestation: I have reviewed the pertinent imaging results. Radiologist's impression: ITS Impressions Chest X-Ray 12/23/24 18:14 IMPRESSION: No acute process. Impression dictated by: Huy Colindres M.D. 12/23/2024 6:45 PM Dictation Location[facility] Electronically authenticated by: [id number] Y Date: 12/23/2024 18:45 ECG Data Attestation: I personally reviewed and interpreted this ECG as follows: (SR with HR 81, no acute/ischemic changes) Discharge Plan Discharge Chief Complaint: Chest Pain Clinical Impression: Anterior chest wall pain Patient Disposition: Home, Self-Care Prescriptions / Home Meds: No Action metformin 500 mg tablet 500 mg PO BID lisinopril 10 mg tablet 10 mg PO DAILY Print Language: French Instructions: Chest Wall Pain (ED) Additional Instructions: May take Tylenol or ibuprofen as needed for any pain. Follow-up with your primary care provider for reevaluation as discussed. Referrals: ANNAMARIA ROACH [Primary Care Provider, Family Practice] - 1 week
[2024-12-23] MEDS: IBUPROFEN 600 MG TABLET PO (18:21)
[2024-12-23 18:32] LABS: Basophils Percent Auto 0.3 % (0.2-2.0); Eosinophils Absolute Auto 0.2 10^3/uL (0.0-0.7); Eosinophils Percent Auto 1.9 % (0.9-7.0); Hemoglobin 10.5 g/dL (12.0-16.0); Immature Granulocytes Abs Auto 0.02 10^3/uL (0.00-0.03); Immature Granulocytes Pct Auto 0.2 % (0.0-0.5); Lymphocytes Percent Auto 25.3 % (20.5-60.0); Mean Corpuscular Hemoglobin 20.8 pg (26.7-34.0); Mean Corpuscular Volume 69.2 fL (81.0-99.0); Mean Platelet Volume 9.3 fL (9.5-13.5); Monocytes Absolute Auto 0.9 10^3/uL (0.3-0.8); Monocytes Percent Auto 7.4 % (1.7-12.0); Neutrophils Absolute Auto 7.7 10^3/uL (1.4-6.5); Neutrophils Percent Auto 64.9 % (43.0-75.0); Platelet Count 479 10^3/uL (150-450); Red Blood Count 5.06 10^6/uL (4.20-5.40); Red Cell Distribution Width 16.2 % (11.0-15.0); White Blood Count 11.8 10^3/uL (4.0-11.0)
[2024-12-23 18:49] LABS: Alanine Aminotransferase 32 U/L (14-59); Albumin Globulin Ratio 0.8; Albumin Level 3.6 g/dL (3.4-5.0); Alkaline Phosphatase 98 U/L (46-116); Anion Gap 12.5; Aspartate Amino Transferase 16 U/L (15-37); BUN Creatinine Ratio 22.4; Bilirubin Total 0.2 mg/dL (0.2-1.0); Calcium 9.1 mg/dL (8.5-10.1); Carbon Dioxide 27.3 mmol/L (21.0-32.0); Chloride 103 mmol/L (98-107); Estimated GFR (African America >60 (>=60 mL/min/1.73m^2); Estimated GFR (Non-African Ame >60 (>=60 mL/min/1.73m^2); Globulin 4.4 g/dL; Glucose 97 mg/dL (74-106); Potassium 3.8 mmol/L (3.5-5.1); Sodium 139 mmol/L (136-145); Troponin I High Sensitivity <4.0 pg/mL (4.0-51.3)
[2024-12-23 19:25] VITALS: BP 115/70; PULSE 79; O2SAT 97
== END 2024-12-23 19:32 | disposition home or self-care (01) ==
PROVIDERS: Nurse Practitioner; Emergency Provider Emergency Medicine; PCP Nurse Practitioner Family
DX: R07.89 Other chest pain (principal); R73.03 Prediabetes; Z79.84 Long term (current) use of oral hypoglycemic drugs
CPT/HCPCS: 36415; 71046; 80053; 84484; 85025; 93005; 99285

== ENCOUNTER 2025-01-04 22:33 | Emergency (ER) | payer BC, SELFPAY ==
[2025-01-04] VITALS (12 sets, daily range): BP systolic 131–139; BP diastolic 92–106; PULSE 95–103; TEMP 36.9; O2SAT 96–100; BMI 58.2
--- NOTE | 2025-01-04 22:54 | PC.NURSE ---
complains of left upper abdomen pain onset 4 days ago while at work
--- NOTE | 2025-01-04 23:09 | ED_ITS ---
HPI HPI - General Adult General Chief complaint: Abdominal Pain Stated complaint: LEFT SIDE PAIN Time Seen by Provider: 01/04/25 23:04 Source: patient Mode of arrival: walk-in Limitations: no limitations History of Present Illness HPI narrative: presents complaining of left sided pleuritic chest pain for 4 days. Not short of breath but pain with deep breath. Not aware of any injury. no fever , chills or abdominal pain Related Data Home Medications ?Medication ?Instructions ?Recorded ?Confirmed lisinopril 10 mg tablet 10 mg PO DAILY 12/23/2412/19 metformin 500 mg tablet 500 mg PO BID 12/23/2401/04 Allergies Allergy/AdvReac Type Severity Reaction Status Date / Time Penicillins Allergy Unknown hives Verified 01/04/25 22:48 cefaclor (From Ceclor) Allergy Hives Verified 01/04/25 22:48 Opioid HPI Opioid Management Most Recent Opioid Data: Last Pain Scale 7 Today, 00:32 Last MAR Pain Assessment Today, 00:32 Review of Systems ROS Status of ROS 10 or more systems reviewed and unremark able except as noted in history and below PFSH PFSH Social History Little interest or pleasure in doing things: not at all Feeling down, depressed, or hopeless: not at all Exam Constitutional Vital Signs, click to edit/add: Last Vital Signs Temp 98.5 F 01/04/25 22:49 Pulse 95 H 01/04/25 23:51 Resp 18 01/04/25 23:51 BP 131/93 H 01/04/25 23:51 Pulse Ox 100 01/04/25 23:51 O2 Del Method Room Air 01/04/25 22:49 Common normals: no apparent distress, oriented x3, no limitations, healthy appearing, alert and well nourished [facility] Common normals: normocephalic and head/scalp atraumatic Eye Common normals: EOMs intact bilaterally and conjunctivae normal Chest Other: left chest wall beneath breast tender Respiratory Common normals: normal respiratory effort, no retractions and no use of accessory muscles GI Common normals: Normal to inspection, nondistended, normoactive bowel sounds present, soft to palpation and non-tender Extremity Common normals: normal to inspection and full ROM Neuro Common normals: oriented x3, CN's II-XII intact bilaterally and moves all extremities Psych Appearance: grossly normal Course Vital Signs Vital signs: Vital Signs Pulse Oximetry 96 01/04/25 22:48 Temperature 98.5 F 01/04/25 22:49 Pulse Rate 95 H 01/04/25 23:51 Respiratory Rate 18 01/04/25 23:51 Blood Pressure 131/93 H 01/04/25 23:51 Pulse Oximetry 100 01/04/25 23:51 Oxygen Delivery Method Room Air 01/04/25 22:49 Medical Decision Making MDM Narrative Medical decision making narrative: patient presents with left sided pleuritic chest pain. has chest wall tenderness and pain with deep breath. CTA chest without PE. Does demonstrate small left pleural effusion. Patient informed of working diagnosis of pleurisy and chest wall pain. Discharged with short course of prednisone and norflex and advised to follow up with her doctor for recheck Lab Data Labs: Lab Results 01/04/25 01/04/25 Range/Units 22:55 23:00 WBC 14.5 H (4.0-11.0) 10^3/uL RBC 4.79 (4.20-5.40) 10^6/uL Hgb 9.8 L (12.0-16.0) g/dL Hct 33.0 L (36.0-48.0) % MCV 68.9 L (81.0-99.0) fL MCH 20.5 L (26.7-34.0) pg MCHC 29.7 L (29.9-35.2) g/dL RDW 16.5 H (11.0-15.0) % Plt Count 441 (150-450) 10^3/uL MPV 9.1 L (9.5-13.5) fL Neut % (Auto) 73.0 (43.0-75.0) % Lymph % (Auto) 19.5 L (20.5-60.0) % [place] % (Auto) 5.3 (1.7-12.0) % Eos % (Auto) 1.5 (0.9-7.0) % Baso % (Auto) 0.3 (0.2-2.0) % Neut # (Auto) 10.6 H (1.4-6.5) 10^3/uL Lymph # (Auto) 2.8 (1.2-3.8) 10^3/uL [place] # (Auto) 0.8 (0.3-0.8) 10^3/uL Eos # (Auto) 0.2 (0.0-0.7) 10^3/uL Baso # (Auto) 0.0 (0.0-0.1) 10^3/uL Abs Immat Gran (auto) 0.06 H (0.00-0.03) 10^3/uL Imm/Tot Granulo (auto) 0.4 (0.0-0.5) % Sodium 138 (136-145) mmol/L Potassium 3.7 (3.5-5.1) mmol/L Chloride 103 (98-107) mmol/L Carbon Dioxide 27.0 (21.0-32.0) mmol/L Anion Gap 11.7 BUN 13.0 (7.0-18.0) mg/dL Creatinine 0.81 (0.55-1.02) mg/dL Est GFR ( Amer) >60 (>=60 mL/min/1.73m^2) Est GFR (Non-Af Amer) >60 (>=60 mL/min/1.73m^2) BUN/Creatinine Ratio 16.0 Glucose 106 (74-106) mg/dL Calcium 9.0 (8.5-10.1) mg/dL Total Bilirubin 0.3 (0.2-1.0) mg/dL AST 17 (15-37) U/L ALT 36 (14-59) U/L Alkaline Phosphatase 91 (46-116) U/L Troponin I High Sens <4.0 L (4.0-51.3) pg/mL Total Protein 7.5 (6.4-8.2) g/dL Albumin 3.3 L (3.4-5.0) g/dL Globulin 4.2 g/dL Albumin/Globulin Ratio 0.8 Urine Color Lt. yellow (YELLOW) Urine Clarity Clear (CLEAR) Urine pH 6.0 (5.0-9.0) Ur Specific [place] >=1.030 A (1.005-1.025) Urine Protein Negative (NEG/TRACE) mg/dL Urine Glucose (UA) Negative (NEGATIVE) mg/dL Urine Ketones Negative (NEGATIVE) mg/dL Urine Occult Blood Negative (NEGATIVE) Urine Nitrite Negative (NEGATIVE) Urine Bilirubin Negative (NEGATIVE) Urine Urobilinogen 0.2 (0.2-1.0) EU/dL Ur Leukocyte Esterase Negative (NEGATIVE) Urine RBC None seen (0-2) #/HPF Urine WBC 0-2 A (NONE SEEN) #/HPF Ur Squamous Epith Cells Rare (NONE/RARE) #/LPF Urine Crystals Seen A (None Seen) #/HPF Calcium Oxalate Crystal Few Amorphous Sediment Rare Urine Bacteria Trace A (NONE SEEN) #/HPF Urine Casts None seen (NONE SEEN) #/LPF Urine Mucus None seen (NONE SEEN) Ur Culture Indicated? No Urine HCG, Qual Negative (NEGATIVE) Imaging Data Chest x-ray: Radiologist's impression: ITS Impressions Chest CTA 01/04/25 23:11 IMPRESSION: Mild dependent airspace opacities are noted most likely representing atelectasis. There is a small left-sided pleural effusion. No evidence of pulmonary embolism. Impression dictated by: Og Rodarte M.D. 01/05/2025 12:15 AM Dictation Location: [place] [address] Electronically authenticated by: [id number] Y Date: 01/05/2025 00:15 Discharge Plan Discharge Chief Complaint: Abdominal Pain Clinical Impression: Pleurisy Patient Disposition: Home, Self-Care Prescriptions / Home Meds: No Action metformin 500 mg tablet 500 mg PO BID lisinopril 10 mg tablet 10 mg PO DAILY Print Language: Danish Instructions: Pleurisy (ED) Additional Instructions: follow up with your doctor in 3-4 days for recheck Referrals: ANNAMARIA ROACH [Primary Care Provider, Family Practice] - 1 week
--- NOTE | 2025-01-04 23:11 | CT_ITS ---
[address] [address] Patient Name: DAMIAN HARE MRN: [id number] date: 1995 Sex: F Assigned Patient Location: ER Current Patient Location: ER Accession/Order Number: [id number] Exam Date: 01/05/2025 00:11 Report Date: 01/05/2025 00:15 At the request of: LORAINE SINGH MD Procedure: CT angio chest CT angio chest 01/04/2025 11:50 PM SIGN AND SYMPTOMS: ^left pleuritic chest pain CONTRAST: 100 mL of intravenous Omnipaque 350 TECHNIQUE: Multidetector CT axial slices of the chest were obtained with IV contrast. Multiplanar reformats were performed and viewed on a separate workstation and reviewed to further define anatomy and possible pathology. CT was performed with one or more of the following dose reduction techniques: Automated exposure control, adjustment of the mA and/or kV according to patient size, or use of iterative reconstruction technique. COMPARISON: None. FINDINGS: Lower neck: Thyroid gland within normal limits, no supraclavicle adenopathy. Vessels: Within normal limits. No evidence of pulmonary embolism. Mediastinum and Kesha: Within normal limits. Heart: Normal size. No pericardial effusion. Airways: Within normal limits Lungs: Mild dependent airspace opacities are noted most likely representing atelectasis. Pleura: There is a small left-sided pleural effusion. Chest Wall: Within normal limits. Upper Abdomen: Within normal limits. Bones: Within normal limits. CT/CT angio chest IMPRESSION: Mild dependent airspace opacities are noted most likely representing atelectasis. There is a small left-sided pleural effusion. No evidence of pulmonary embolism. Impression dictated by: Og Rodarte M.D. 01/05/2025 12:15 AM Dictation Location: [place] [address] Electronically authenticated by: [id number] Y Date: 01/05/2025 00:15
--- NOTE | 2025-01-04 23:11 | ECG_ITS ---
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 Measurements Intervals Sun Rate: 93 P: 46 MN: 170 QRS: 38 QRSD: 92 T: 10 QT: 352 QTc: 403 Interpretive Statements 1100 Sinus rhythm 4068 Nonspecific Twave abnormality 9130 borderline ECG Compared to ECG 12/23/2024 18:08:09 No significant changes Electronically Signed On 01-05-2025 7:15:57 EDT by STEF LOPEZ M.D.
[2025-01-04 23:16] LABS: Basophils Percent Auto 0.3 % (0.2-2.0); Eosinophils Absolute Auto 0.2 10^3/uL (0.0-0.7); Eosinophils Percent Auto 1.5 % (0.9-7.0); Hemoglobin 9.8 g/dL (12.0-16.0); Immature Granulocytes Abs Auto 0.06 10^3/uL (0.00-0.03); Immature Granulocytes Pct Auto 0.4 % (0.0-0.5); Lymphocytes Absolute Auto 2.8 10^3/uL (1.2-3.8); Lymphocytes Percent Auto 19.5 % (20.5-60.0); Mean Corpuscular HGB Conc 29.7 g/dL (29.9-35.2); Mean Corpuscular Hemoglobin 20.5 pg (26.7-34.0); Mean Corpuscular Volume 68.9 fL (81.0-99.0); Mean Platelet Volume 9.1 fL (9.5-13.5); Monocytes Absolute Auto 0.8 10^3/uL (0.3-0.8); Monocytes Percent Auto 5.3 % (1.7-12.0); Neutrophils Absolute Auto 10.6 10^3/uL (1.4-6.5); Platelet Count 441 10^3/uL (150-450); Red Blood Count 4.79 10^6/uL (4.20-5.40); Red Cell Distribution Width 16.5 % (11.0-15.0); White Blood Count 14.5 10^3/uL (4.0-11.0)
[2025-01-04 23:30] LABS: Alanine Aminotransferase 36 U/L (14-59); Albumin Globulin Ratio 0.8; Albumin Level 3.3 g/dL (3.4-5.0); Alkaline Phosphatase 91 U/L (46-116); Anion Gap 11.7; Aspartate Amino Transferase 17 U/L (15-37); Bilirubin Total 0.3 mg/dL (0.2-1.0); Chloride 103 mmol/L (98-107); Estimated GFR (African America >60 (>=60 mL/min/1.73m^2); Estimated GFR (Non-African Ame >60 (>=60 mL/min/1.73m^2); Globulin 4.2 g/dL; Glucose 106 mg/dL (74-106); Potassium 3.7 mmol/L (3.5-5.1); Sodium 138 mmol/L (136-145); Total Protein 7.5 g/dL (6.4-8.2)
[2025-01-04 23:34] LABS: Troponin I High Sensitivity <4.0 pg/mL (4.0-51.3)
[2025-01-04 23:47] LABS: Bilirubin Urine NEGATIVE (NEGATIVE); Blood Urine NEGATIVE (NEGATIVE); Clarity Urine CLEAR (CLEAR); Color Urine LT. YELLOW (YELLOW); Glucose Urine UA NEGATIVE (NEGATIVE); Ketones Urine NEGATIVE (NEGATIVE); Leukocyte Esterase Urine NEGATIVE (NEGATIVE); Nitrite Urine NEGATIVE (NEGATIVE); Protein Urine NEGATIVE (NEG/TRACE); Specific Gravity Urine >=1.030 (1.005-1.025); Urobilinogen Urine 0.2 EU/dL (0.2-1.0)
[2025-01-04 23:48] LABS: HCG Qualitative Urine* NEGATIVE (NEGATIVE); Internal Control Within Normal Limits
[2025-01-04 23:49] LABS: Urine Microscopic Indicated YES
[2025-01-04 23:54] LABS: Amorphous Sediment Urine RARE; Bacteria Urine TRACE #/HPF (NONE SEEN); Calcium Oxalate Crystals Urine FEW; Cast Seen? NONE SEEN #/LPF (NONE SEEN); Crystals Seen? Seen #/HPF (None Seen); Mucus Urine NONE SEEN (NONE SEEN); RBC Urine NONE SEEN #/HPF (0-2); Squamous Epithelial Cell Urine RARE #/LPF (NONE/RARE); Urine Culture Indicated NO; WBC Urine 0-2 #/HPF (NONE SEEN)
[2025-01-05] VITALS (8 sets, daily range): BP systolic 99–128; BP diastolic 57–89; PULSE 84–95; O2SAT 97–100
[2025-01-05] MEDS: KETOROLAC TROMETHAMINE 30 MG/ML VIAL IVP (00:32)
[2025-01-05] MEDS: METHYLPREDNISOLONE SOD SUCC PF 125 MG/2 ML VIAL IVP (00:33)
--- NOTE | 2025-01-05 01:01 | PC.NURSE ---
i gave this patient verbal and written discharge orders along with 2 Rx and 1 work note. this patient voices yes to understanding these. at time of discharge this patient voices no concerns and shows no signs of distress
== END 2025-01-05 01:03 | disposition home or self-care (01) ==
PROVIDERS: Emergency Provider Internal Medicine; PCP Nurse Practitioner Family
DX: R09.1 Pleurisy (principal); R07.89 Other chest pain
CPT/HCPCS: 36415; 71275; 80053; 81001; 84484; 84703; 85025; 93005; 96374; 96375; 99285; J1885; J2919; Q9967